=== PATIENT | male | born 1945 | race African-American/Black ===

== ENCOUNTER 2017-04-01 11:31 | Emergency (ER) | payer MEDICARE, MEDICAID | END 2017-04-01 13:52 | disposition home or self-care (01) | LOC: ERS 11:31 | DX: G89.18 Other acute postprocedural pain (principal); M54.5 Low back pain; I25.10 Atherosclerotic heart disease of native coronary artery without angina pectoris; E78.5 Hyperlipidemia, unspecified; I10 Essential (primary) hypertension; F32.9 Major depressive disorder, single episode, unspecified; I25.2 Old myocardial infarction | CPT/HCPCS: 96372; J2270 ==

== ENCOUNTER 2017-06-04 08:57 | Emergency (ER) | payer MEDICARE, MEDICAID ==
[2017-06-04] MEDS ORDERED: Fluorescein Opthalmic Strip ONE (09:34)
[2017-06-04] MEDS ORDERED: Proparacaine 0.5% Opth 15 ML BOT ONE (09:34)
== END 2017-06-04 10:06 | disposition home or self-care (01) ==
LOC: ERS 08:57
DX: H10.12 Acute atopic conjunctivitis, left eye (principal); I25.10 Atherosclerotic heart disease of native coronary artery without angina pectoris; I25.2 Old myocardial infarction; E78.5 Hyperlipidemia, unspecified; I10 Essential (primary) hypertension; F32.9 Major depressive disorder, single episode, unspecified; Z79.899 Other long term (current) drug therapy
CPT/HCPCS: 99283

== ENCOUNTER 2017-08-20 13:45 | Emergency (ER) | payer MEDICARE, MEDICAID | END 2017-08-20 14:49 | disposition home or self-care (01) | LOC: ERS 13:45 | DX: J01.90 Acute sinusitis, unspecified (principal); I25.10 Atherosclerotic heart disease of native coronary artery without angina pectoris; I25.2 Old myocardial infarction; E78.5 Hyperlipidemia, unspecified; I10 Essential (primary) hypertension | CPT/HCPCS: 99282 ==

== ENCOUNTER 2018-04-19 15:09 | Outpatient (CLI) | payer MEDICARE, MEDICAID ==
[2018-04-19] MEDS ORDERED: Gadobenate Dimeglumine 529 MG/1 ML (20ML VIAL) ONE (16:12)
--- NOTE | 2018-04-19 16:58 | RAD ---
LUMBAR SPINE THREE VIEWS: 04/19/18 Lateral views were obtained in neutral, flexion and extension positions. HISTORY: Lumbar stenosis with claudication. Low back pain. COMPARISON: Comparison made to films from 2015. Lumbar vertebrae maintain height. There is a slight anterolisthesis at L4-5 which is unchanged from p rior exam. Moderate degenerative osteophytes are present. These osteophytes are most pronounced at L3 , L4 and L5 levels. Slight anterior wedging of L3 is stable from the prior exam. Prominent facet hype rtrophy below L1 is noted. No other evidence of listhesis. Severe loss of disc space at L5-S1. IMPRESSION: Moderately severe degenerative changes noted. Mild anterolisthesis at L4-5 appears stable from prior exam. This listhesis at L4-5 reduces slightly with extension. POS: [facility]
--- NOTE | 2018-04-19 18:13 | MRI ---
MRI OF LUMBAR SPINE WITH AND WITHOUT CONTRAST: 04/19/18 COMPARISON: 12/03/10. HISTORY: Spinal stenosis with claudication. Patient fell in July 2017. Bilateral hip pain. Unsteady gait. P revious spine surgery. FINDINGS: Appropriate T1 marrow signal intensity to the lumbar vertebrae. Heterogeneous signal intensity due to senescent change. There is intrinsic T1 and T2 hyperintensity with associated STIR hyperintensity in volving the inferior end plate of L2, superior aspect of L3 suggesting type I Modic change. There is a combination of type I and type II Modic change at the L5-S1 level. Symmetric signal intensity of the psoas muscles. The visualized solid organs have appropriate signal intensity. Conus medullaris terminates at the T12 level. Postcontrast images do not demonstrate any abnormal enhancement with regards to the vertebral bodies. There is no abnormal enhancement within the thecal sac including the cauda equina and conus medullar is. T12-L1: Desiccation with minimal loss of disc space height. No significant central canal stenosis. Ne ural foramina are patent bilaterally. L1-L2: Adequate disc hydration. No significant central canal stenosis. Neural foramina are patent. L2-L3: Desiccation with mild loss of disc space height. Generalized disc bulge, ligamentum flavum thi ckening and facet hypertrophy result in moderate central canal stenosis. There is fluid in both facet joints. T2 hyperintensity lateral to the right nerve root likely representing a 3 mm synovial cyst, paraspinal in location. Moderate right and left foraminal narrowing. L3-L4: Desiccation with moderate loss of disc space height. Broad based disc bulge abuts the thecal s ac. There is mild central canal stenosis. Dorsal laminectomy defect is identified. Minimal enhancing scar tissue at the operative site. Moderate bilateral foraminal narrowing. L4-L5: Desiccation with mild loss of disc space height. Posterior laminectomy defect. There is bilate ral facet hypertrophy and ligamentum flavum thickening. There is moderate central canal stenosis. Mod erate right and severe left foraminal narrowing. On the postcontrast images, mild enhancement at the operative site. L5-S1: Desiccation with moderate loss of disc space height. There is a broad based disc bulge and pos terior laminectomy defect. There is moderate central canal stenosis. Moderate to severe bilateral for aminal narrowing. Minimal enhancing scar tissue at the laminectomy defect site. IMPRESSION: 1. Posterior laminectomy defect at L3-L4, L4-L5 and L5-S1. Enhancing scar tissue at the laminect meggan defect site is noted. 2. Varying degrees of central canal stenosis and foraminal narrowing on the basis of degenerativ e change. 3. There is moderate central stenosis at L3-L4, L4-L5, and L5-S1. POS: [facility]
== END 2018-04-19 15:10 | disposition home or self-care (01) ==
LOC: TBSIIMAG 15:09
PROVIDERS: ATTEND Neurological Surgery
DX: M48.062 Spinal stenosis, lumbar region with neurogenic claudication (principal); M47.896 Other spondylosis, lumbar region; M43.16 Spondylolisthesis, lumbar region
CPT/HCPCS: 72100; 72158; A9579

== ENCOUNTER 2018-09-07 12:59 | Emergency (ER) | payer MEDICARE, MEDICAID ==
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
== END 2018-09-07 14:23 | disposition home or self-care (01) ==
LOC: ERS 12:59
DX: R09.82 Postnasal drip (principal); R05 Cough; I25.10 Atherosclerotic heart disease of native coronary artery without angina pectoris; I25.2 Old myocardial infarction; E78.5 Hyperlipidemia, unspecified; I10 Essential (primary) hypertension
CPT/HCPCS: 71046

== ENCOUNTER 2018-09-20 12:48 | Outpatient (CLI) | payer MEDICARE, MEDICAID ==
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
== END 2018-09-20 12:49 | disposition home or self-care (01) ==
LOC: BICRAD 12:48
PROVIDERS: ATTEND Internal Medicine
DX: R05 Cough (principal)
CPT/HCPCS: 71046

== ENCOUNTER 2018-12-25 14:31 | Emergency (ER) | payer MEDICARE, MEDICAID ==
--- NOTE | 2018-12-25 15:54 | CT ---
CT BRAIN WITHOUT CONTRAST: HISTORY: Fall, headache. FINDINGS: No evidence of infarct, hemorrhage, midline shift, or abnormal extraaxial fluid collections is seen. The ventricular size is normal and the basilar cisterns patent. The bony calvarium is intact. The visualized paranasal sinuses and mastoid air cells are well aerated. IMPRESSION: No CT evidence of acute intracranial process. POS: OFF
== END 2018-12-25 17:43 | disposition home or self-care (01) ==
LOC: ERS 14:31
DX: S09.90XA Unspecified injury of head, initial encounter (principal); I10 Essential (primary) hypertension; I25.2 Old myocardial infarction; E78.5 Hyperlipidemia, unspecified; Z87.891 Personal history of nicotine dependence; W01.198A Fall on same level from slipping, tripping and stumbling with subsequent striking against other object, initial encounter
CPT/HCPCS: 70450

== ENCOUNTER 2019-02-12 10:16 | Day surgery (SDC) | payer MEDICARE, MEDICAID ==
[2019-02-12] MEDS ORDERED: Midazolam HCl 2 mg/2 ml Vial ONE (12:47)
[2019-02-12] MEDS ORDERED: Fentanyl 100 MCG/2 ML VIAL ONE (12:48)
--- NOTE | 2019-02-12 14:25 | MRI ---
MRI LUMBAR SPINE WITH AND WITHOUT CONTRAST: HISTORY: Lumbar spondylosis with myelopathy. Back pain. COMPARISON: 04/19/2018 FINDINGS: Overall appropriate T1 marrow signal intensity of the lumbar vertebrae. Lumbar spine vertebral body height is maintained. No fracture. A combination of type I and type II Modic changes at the L5-S1 level. Appropriate signal intensity of the paraspinal muscles. Appropriate signal intensity of the visualized solid organs. The conus medullaris terminates at the mid T12 level. Post contrast images do not demonstrate any abnormal enhancement with regards to the vertebral bodies. There is no abnormal enhancement within the thecal sac, including the cauda equina and the conus medullaris. T12-L1: Adequate disc hydration. No significant central canal stenosis. Bilaterally, the neural fo ramina are patent. L1-L2: Adequate disc hydration. No significant central canal stenosis. The neural foramina are pat ent. L2-L3: Moderate loss of disc space height. Posterior laminectomy defect. Broad-based disc bulge an d posterior element hypertrophy result in moderate to severe central canal stenosis. Moderate to severe bilateral neural foraminal narrowing. There is fluid in both facet joints. Mild enhancement of the facet joints, likely due to arthropathy. L3-L4: Desiccation with moderate loss of disc space height. There is a broad-based disc bulge with a small left paracentral disc protrusion. Posterior laminectomy defect. Mild to moderate central canal stenosis. Severe right and moderate to severe left foraminal narrowing. L4-L5: Mild loss of disc space height. Broad-based disc bulge and facet hypertrophy result in sever e central canal stenosis. A laminectomy defect is identified. Severe bilateral foraminal narrowing. There is bilateral facet hypertrophy with fluid in both facet joints. On the post contra st images, there is a 0.6 cm enhancing focus just medial to the left facet joint. Reactive changes of the facet joint due to arthropathy are suspected. There is mass effect upon the traversing left L 5 and S1 nerve roots. Given the lack of intrinsic T2 hyperintensity, a synovial cyst is less favored. Findings are similar to the previous examination. L5-S1: Desiccation with severe loss of disc space height. Broad-based disc bulge abuts the ventral thecal sac. There is narrowing of both subarticular zones, left greater than right. Disc material abuts but does not obscure the traversing right S1 nerve root. Disc material abuts and obscures the traversing left S1 nerve root. A laminectomy defect is identified. Severe bilateral foraminal narrowing. IMPRESSION: 1. Extensive multilevel laminectomy defects. 2. Moderate to severe central canal stenosis at L2-L3, and severe central canal stenosis at L4-L5, a s described above. 3. Multilevel neural foraminal narrowing as described above. Transcribed Date/Time: 02/12/2019 3:43 PM
--- NOTE | 2019-02-12 15:57 | MRI ---
Bottom of report in findings section--- On the postcontrast images, there is no abnormal enhancement of the visualized spinal cord. POS: OFF
--- NOTE | 2019-02-13 07:34 | MRI ---
MRI CERVICAL SPINE WITH AND WITHOUT CONTRAST: HISTORY: Cervical spondylosis with myelopathy. Neck pain. COMPARISON: None. CORRELATION: Post myelogram cervical spine CT 11/06/2008. TECHNIQUE: Cervical spine MRI is performed without intravenous Gadolinium administration. Multisequential, mult iplanar imaging is performed. FINDINGS: There is straightening of the normal cervical lordosis. Appropriate T1 marrow signal intensity of th e cervical vertebrae. Cervical spine vertebral body height is maintained. There is no fracture. St raightening of normal cervical lordosis may be due to patient position, muscle spasm, or cervical col lar. There appears to be extensive calcification of the posterior longitudinal ligament from C2 thro ugh C7. The visualized brain parenchyma is unremarkable. The cervical medullary junction is unremarkable. T he cervical cord is diminutive. There is central T2 hyperintensity, which may represent myelomalacia of the cord. Post contrast images do not demonstrate any abnormal enhancement. C2-C3: Moderate to severe central canal stenosis, predominantly due to posterior longitudinal ligame nt calcification. There is deformity of the cervical cord with volume loss. Mild bilateral foramina l narrowing. C3-C4: Broad-based calcification of the posterior longitudinal ligament results in severe central ca nal stenosis. There is marked deformity of the cervical cord with cord malacia. Bilaterally, the ne ural foramina are patent. C4-C5: Broad-based disk osteophyte complex with calcification of the posterior longitudinal ligament results in severe central canal stenosis. There are malacic changes of the cervical cord. Moderate right and severe left foraminal narrowing. C5-C6: Moderate central canal stenosis, which is presumed to be predominantly due to calcification o f the posterior longitudinal ligament. There is deformity of the cervical cord. Malacic changes are noted. Severe bilateral foraminal narrowing. There is a right paracentral component, which causes mass effect upon the cervical cord. There is severe atrophy of the cord with a T2 hyperintensity, almeida ggesting malacia. There is a broad-based disk osteophyte complex with superimposed calcification of the posterior longi tudinal ligament. Moderate to severe central canal stenosis. Severe bilateral foraminal narrowing. C6-C7: There appears to be a broad-based disk osteophyte complex with a central and right paracentra l inferior component. Calcification of the longitudinal ligament is identified. There is severe darío tral canal stenosis. Severe deformity at the right aspect of the cervical cord. Moderate to severe bilateral foraminal narrowing. C7-T1: Broad-based disk bulge with a central disk protrusion. Moderate to severe central canal sten osis. Mild to moderate right and moderate to severe left foraminal narrowing. On the postcontrast images, there is no abnormal enhancement of the visualized spinal cord. IMPRESSION: Extensive central canal stenosis secondary to degenerative disk disease, as well as bulky calcificati on in the posterior longitudinal ligament. There is multilevel moderate to severe/severe central can al stenosis. There is severe deformity of the cervical cord with significant cord malacia at the C4- C5 level. POS: OFF
== END 2019-02-12 15:20 | disposition home or self-care (01) ==
LOC: SDC/OP 10:16
PROVIDERS: ATTEND Neurological Surgery
DX: M48.061 Spinal stenosis, lumbar region without neurogenic claudication (principal); M47.16 Other spondylosis with myelopathy, lumbar region; M50.00 Cervical disc disorder with myelopathy, unspecified cervical region; M47.12 Other spondylosis with myelopathy, cervical region; M48.02 Spinal stenosis, cervical region
CPT/HCPCS: 72156; 72158; 82565; J2250; J3010

== ENCOUNTER 2020-02-22 09:57 | Day surgery (SDC) | payer MEDICARE, MEDICAID ==
[2020-02-21 11:04] VITALS: BMI 24.0
[~2020-02-22 09:57] MED LIST: PROPOFOL 200 MG/20 ML VIAL ONE
[2020-02-22] MEDS ORDERED: Famotidine/PF 20 mg/2ml Vial ONE ×2 (11:21→11:23)
--- NOTE | 2020-02-22 14:28 | MRI ---
MRI Cervical Spine WO Con History: Cervical radiculopathy Comparison: Cervical spine MRI 2019 Findings: Laminectomy change from C3-C6. Cerebral tonsils are at the foramen magnum. No marrow infilt rative process. Modic type II endplate changes at C7/T1. Modic type I endplate changes at T2/T3. Modic type I and II endplate changes at C3/C4. Erosive changes of the odontoid process with synovial pannus formation along the posterior odontoid. Myelomalacia of the cord from C3-C6 with cord thinning and small syrinx. Abnormal ossification throughout the posterior longitudinal ligament. Levels are as follows: C2/C3: There is ossification posterior longitudinal ligament. Spinal canal is narrowed to 6 mm. Mild left neural foraminal narrowing. C3/C4: Severe degenerative disc space height loss. Large disc osteophyte complex. Severe ossification posterior longitudinal ligament. Spinal canal is narrowed to 5 mm. Severe left and moderate to severe right neural foraminal narrowing due to the posterior longitudinal ligament ossification and d isc osteophyte complex. C4/C5: Severe degenerative disc space height loss. Large disc osteophyte complex. Ossification evening or night nurse supervisor ior longitudinal ligament. Spinal canal is narrowed to 6 mm. Severe bilateral neural foraminal narrowing. C5/C6: Moderate degenerative disc space height loss. Moderate to large disc osteophyte complex. Moder ate right hypertrophic facet arthropathy. Severe bilateral neural foraminal narrowing. Spinal canal is narrowed to 6 mm. C6/C7: Moderate to severe degenerative disc space height loss. Large disc osteophyte complex. Ossific ation posterior longitudinal ligament. Spinal canal is narrowed to 6 mm. Severe right and moderate to severe left neural foraminal narrowing. C7/T1: Moderate degenerative disc space height loss. Large disc osteophyte complex. Ossification post erior longitudinal ligament. Spinal canal measures 7 mm. Severe right and moderate to severe left neural foraminal narrowing. Large disc osteophyte complex at T2/T3 abuts the anterior cord, narrows the spinal canal to 9 mm, and causes moderate to severe bilateral neural foraminal narrowing. Impression: 1. Multilevel high-grade spondylosis as described with severe neural foraminal narrowing. 2. Multilevel spinal canal narrowing is relatively similar. 3. Spinal cord myelomalacia with central syrinx.
== END 2020-02-22 15:38 | disposition home or self-care (01) ==
LOC: MRI 09:57
PROVIDERS: ATTEND Registered Nurse
DX: M47.22 Other spondylosis with radiculopathy, cervical region (principal); M48.02 Spinal stenosis, cervical region; G95.89 Other specified diseases of spinal cord; G89.4 Chronic pain syndrome; M46.1 Sacroiliitis, not elsewhere classified; M70.61 Trochanteric bursitis, right hip; M70.62 Trochanteric bursitis, left hip; Z79.899 Other long term (current) drug therapy
CPT/HCPCS: 72141; J2704; S0028

== ENCOUNTER 2020-06-18 14:26 | Outpatient (CLI) | payer MEDICARE, MEDICAID ==
--- NOTE | 2020-06-18 15:16 | BD ---
Exam: DEXA Bone Density 06/18/20 HISTORY: Postmenopausal screening for osteoporosis. BMD (g/cm2) T-SCORE Z-SCORE Right hip: Neck: 1.022 0.7 1.3 Total: 1.395 2.4 2.4 Left hip: Neck: 0.970 0.3 1.0 Total: 1.346 2.1 2.1 IMPRESSION: Normal BMD. POS: AH
== END 2020-06-18 14:27 | disposition home or self-care (01) ==
LOC: BICMAMMO 14:26
PROVIDERS: ATTEND Family Medicine
DX: Z13.820 Encounter for screening for osteoporosis (principal); Z91.81 History of falling
CPT/HCPCS: 77080